=== PATIENT | female | born 1990 | race African-American/Black ===

== ENCOUNTER 2024-07-05 22:43 | Emergency (ER) | payer OTHER ==
[2024-07-05 22:50] VITALS: BP 132/88; PULSE 102; RESP 18; TEMP 98.4; BMI 24.7
[2024-07-06 01:39] LABS: HIV INTERPRETATION NEGATIVE (NEGATIVE)
== END 2024-07-05 23:50 | disposition home or self-care (01) ==
LOC: JERFT 22:43
DX: A63.0 Anogenital (venereal) warts (principal)
CPT/HCPCS: 36415; 86803; 87389; 99283-25